=== PATIENT | female | born 1995 | race Caucasian/White ===

== ENCOUNTER 2017-02-03 17:34 | Emergency (ER) | payer OTHER ==
[2017-02-03 17:54] VITALS: BP 117/67
--- NOTE | 2017-02-03 18:44 | UC ---
Throat Pain/Nasal Noel HPI - HPI Summary HPI Summary: 21 yo female with sore throat since this AM nasal congestion no fever - History of Current Complaint Chief Complaint: UCRespiratory Stated Complaint: SORE THROAT Time Seen by Provider: 02/03/17 18:32 Hx Obtained From: Patient Hx Last Menstrual Period: Implanon BC Onset/Duration: Gradual Onset, Lasting Hours Severity: Moderate Pain Intensity: 4 Pain Scale Used: 0-10 Numeric Cough: Nonproductive - Allergies/Home Medications Allergies/Adverse Reactions: Allergies Allergy/AdvReac Type Severity Reaction Status Date / Time No Known Allergies Allergy Verified 02/03/17 17:47 PMH/Surg Hx/FS Hx/Imm Hx Previously Healthy: Yes - Surgical History Surgical History: Yes Surgery Procedure, Year, and Place: c-sect - Family History Known Family History: Positive: Cardiac Disease, Hypertension, Other - [place] - Social History Alcohol Use: Daily Substance Use Type: None Smoking Status (MU): Light Every Day Tobacco Smoker Type: Cigarettes Amount Used/How Often: 1/2 pack day Household Exposure Type: Cigarettes - Immunization History Most Recent Influenza Vaccination: NONE [id number] Most Recent Tetanus Shot: UTD Most Recent Pneumonia Vaccination: N/A Review of Systems Constitutional: Negative Skin: Negative Eyes: Negative ENT: Sore Throat Respiratory: Cough Cardiovascular: Negative Gastrointestinal: Negative Genitourinary: Negative Motor: Negative Neurovascular: Negative Musculoskeletal: Negative Neurological: Negative Psychological: Negative All Other Systems Reviewed And Are Negative: Yes Physical Exam Triage Information Reviewed: Yes Appearance: Well-Appearing, No Pain Distress, Well-Nourished Vital Signs: Initial Vital Signs Temp 99 F 02/03/17 17:48 Pulse 86 02/03/17 17:48 Resp 18 02/03/17 17:48 BP 117/67 02/03/17 17:48 Pulse Ox 99 02/03/17 17:48 Eyes: Positive: Conjunctiva Clear ENT: Positive: Pharyngeal erythema, TMs normal, Tonsillar swelling. Negative: Nasal congestion, Nasal drainage, Tonsillar exudate, Trismus, Muffled/hoarse voice Neck: Positive: Supple, Nontender, Enlarged Nodes @ - ant cervical Respiratory: Positive: Lungs clear, Normal breath sounds, No respiratory distress, No accessory muscle use Cardiovascular: Positive: RRR, No Murmur Musculoskeletal: Positive: ROM Intact, No Edema Neurological Exam: Normal Neurological: Positive: Alert Psychological Exam: Normal Skin Exam: Normal Throat Pain/Nasal Course/Dx - Differential Dx/Diagnosis Provider Diagnoses: pharyngo-tonsillitis Discharge - Discharge Plan Condition: Stable Disposition: HOME Prescriptions: Amoxicillin (*) [Amoxicillin 875 MG (*)] 875 mg PO BID #20 tab Patient Education Materials: Pharyngitis (ED) Referrals: No Primary Care Phys,NOPCP [Primary Care Provider] - Additional Instructions: saline nasal spray recheck in 3-4 days if not better
== END 2017-02-03 18:44 | disposition home or self-care (01) ==
LOC: UCCORT 17:34
DX: J02.9 Acute pharyngitis, unspecified (principal); R09.81 Nasal congestion; F17.210 Nicotine dependence, cigarettes, uncomplicated
CPT/HCPCS: 99212; G0463

== ENCOUNTER 2017-02-08 11:03 | Emergency (ER) | payer OTHER ==
[2017-02-08 11:28] VITALS: BP 110/51
--- NOTE | 2017-02-08 12:22 | UC ---
Throat Pain/Nasal Noel HPI - HPI Summary HPI Summary: Pateint was treated for tonisillitis on 02/03/17. she has been taking amoxicillin without relief or decrease in symtpoms. ears feel full and she is coughing up mucous. denies fever. - History of Current Complaint Chief Complaint: UCRespiratory Stated Complaint: RE-CK, EARS CLOGGED,CONGESTION Time Seen by Provider: 02/08/17 12:11 Hx Obtained From: Patient Hx Last Menstrual Period: 01/25/17 ?: No Onset/Duration: Gradual Onset, Lasting Days Severity: Moderate Cough: Sputum Appears Associated Signs & Symptoms: Positive: Dysphagia, Sinus Discomfort, Nasal Discharge - Allergies/Home Medications Allergies/Adverse Reactions: Allergies Allergy/AdvReac Type Severity Reaction Status Date / Time No Known Allergies Allergy Verified 02/08/17 11:28 PMH/Surg Hx/FS Hx/Imm Hx Previously Healthy: Yes - Surgical History Surgical History: Yes Surgery Procedure, Year, and Place: c-sect - Family History Known Family History: Positive: Cardiac Disease, Hypertension, Other - [place] - Social History Alcohol Use: Daily Substance Use Type: None Smoking Status (MU): Heavy Every Day Tobacco Smoker Type: Cigarettes Amount Used/How Often: 1/2 pack day Length of Time of Smoking/Using Tobacco: since age 15 Household Exposure Type: Cigarettes - Immunization History Most Recent Influenza Vaccination: NONE [id number] Most Recent Tetanus Shot: UTD Most Recent Pneumonia Vaccination: N/A Review of Systems Constitutional: Negative Skin: Negative Eyes: Eye Redness ENT: Sore Throat, Ear Ache, Nasal Discharge Respiratory: Cough Cardiovascular: Negative Gastrointestinal: Negative Genitourinary: Negative Motor: Negative Neurovascular: Negative Musculoskeletal: Negative Neurological: Negative Psychological: Negative All Other Systems Reviewed And Are Negative: Yes Physical Exam Triage Information Reviewed: Yes Appearance: Well-Nourished, Ill-Appearing, Pain Distress Vital Signs: Initial Vital Signs Temp 97.9 F 02/08/17 11:21 Pulse 61 02/08/17 11:21 Resp 14 02/08/17 11:21 BP 110/51 02/08/17 11:21 Pulse Ox 100 02/08/17 11:21 Vital Signs Reviewed: Yes Eye Exam: Normal Eyes: Positive: Conjunctiva Inflamed ENT: Positive: Pharyngeal erythema, TM bulging, TM red, Tonsillar swelling, Tonsillar exudate Dental Exam: Normal Neck exam: Normal Neck: Positive: Supple, Nontender, No Lymphadenopathy Respiratory Exam: Normal Respiratory: Positive: No respiratory distress, No accessory muscle use, Wheezing, Inspiration Cardiovascular Exam: Normal Cardiovascular: Positive: RRR, No Murmur, Pulses Normal Abdominal Exam: Normal Abdomen Description: Positive: Nontender, No Organomegaly, Soft Bowel Sounds: Positive: Present Musculoskeletal Exam: Normal Musculoskeletal: Positive: Strength Intact, ROM Intact, No Edema Neurological Exam: Normal Neurological: Positive: Alert, Muscle Tone Normal Psychological Exam: Normal Skin Exam: Normal Throat Pain/Nasal Course/Dx - Course Course Of Treatment: hx obtained, exam performed, meds reviewed, treated for rhinosinusitis. given prednisone and educated on daily allergy medication use. encouraged hydration - Differential Dx/Diagnosis Differential Diagnosis/HQI/PQRI: Influenza, Laryngitis, Otitis Media, Pharyngitis, Sinusitis, URI Provider Diagnoses: rhinosinusitis. pharyngitis Discharge - Discharge Plan Condition: Stable Disposition: HOME Prescriptions: predniSONE TAB* [Deltasone TAB*] 40 mg PO DAILY #14 tab Patient Education Materials: Rhinosinusitis (ED) Referrals: No Primary Care Phys,NOPCP [Primary Care Provider] - Additional Instructions: 1. take the medication as prescribed. 2. Increase your fluid intake 3. take a daily allergy medication such as Claritin d or Zyrtec. 4. Follow up as needed.
== END 2017-02-08 12:33 | disposition home or self-care (01) ==
LOC: UCCORT 11:03
DX: J32.9 Chronic sinusitis, unspecified (principal); J02.9 Acute pharyngitis, unspecified; F17.210 Nicotine dependence, cigarettes, uncomplicated
CPT/HCPCS: 99212; G0463

== ENCOUNTER 2017-10-25 08:10 | Emergency (ER) | payer OTHER ==
[2017-10-25 08:35] VITALS: BP 115/68
--- NOTE | 2017-10-25 08:52 | UC ---
FLU HPI - HPI Summary HPI Summary: Pt c/o sudden onset of nasal congestion, body aches, generalized malaise, cough X 1 day. Did not get flu vaccine this year. - History of Current Complaint Chief Complaint: UCGeneralIllness Stated Complaint: LOW BACK/ARM MUSCLES CONGESTION Time Seen by Provider: 10/25/17 08:24 Hx Obtained From: Patient Hx Last Menstrual Period: 10/23/17 ?: No Onset/Duration: Sudden Onset Severity Currently: Mild Severity Initially: Mild Pain Intensity: 5 Associated Signs & Symptoms: Positive: Myalgia, Cough, Nasal Congestion Related Hx: Possible Flu/Infectious Exposure, Smoking - Allergy/Home Medications Allergies/Adverse Reactions: Allergies Allergy/AdvReac Type Severity Reaction Status Date / Time No Known Allergies Allergy Verified 10/25/17 08:32 Home Medications: Home Medications medroxyPROGESTERone ACETATE* [DEPO-Provera] 150 mg IM Q3M 10/25/17 [History Confirmed 10/25/17] PMH/Surg Hx/FS Hx/Imm Hx Previously Healthy: Yes - Surgical History Surgical History: Yes Surgery Procedure, Year, and Place: c-sect - Family History Known Family History: Positive: Cardiac Disease, Hypertension, Other - [place] - Social History Occupation: Employed Full-time Lives: With Family Alcohol Use: Weekly Substance Use Type: None Smoking Status (MU): Heavy Every Day Tobacco Smoker Type: Cigarettes Amount Used/How Often: 1/2 pack day Length of Time of Smoking/Using Tobacco: since age 15 Have You Smoked in the Last Year: Yes Household Exposure Type: Cigarettes - Immunization History Most Recent Influenza Vaccination: NONE [id number] Most Recent Tetanus Shot: UTD Most Recent Pneumonia Vaccination: N/A Review of Systems Constitutional: Chills, Fatigue Skin: Negative Eyes: Negative ENT: Sore Throat, Sinus Congestion Respiratory: Cough Cardiovascular: Negative Gastrointestinal: Negative Genitourinary: Negative Motor: Negative Neurovascular: Negative Musculoskeletal: Myalgia Neurological: Negative Psychological: Negative Is Patient Immunocompromised?: No All Other Systems Reviewed And Are Negative: Yes Physical Exam Triage Information Reviewed: Yes Appearance: Well-Appearing Vital Signs: Initial Vital Signs Temp 99 F 10/25/17 08:30 Pulse 75 10/25/17 08:30 Resp 16 10/25/17 08:30 BP 115/68 10/25/17 08:30 Pulse Ox 100 10/25/17 08:30 Vital Signs Reviewed: Yes Eye Exam: Normal ENT Exam: Other ENT: Positive: Nasal congestion Respiratory Exam: Normal Cardiovascular Exam: Normal Musculoskeletal Exam: Normal Neurological Exam: Normal Psychological Exam: Normal Skin Exam: Normal Flu Course/Dx - Differential Dx/Diagnosis Differential Diagnosis/HQI/PQRI: Bronchitis, Influenza, RSV, Upper Respiratory Infection Provider Diagnoses: viral syndrome Discharge - Discharge Plan Condition: Stable Disposition: HOME Patient Education Materials: Viral Syndrome (ED) Referrals: No Primary Care Phys,NOPCP [Primary Care Provider] - [facility] [place] [facility] [Outside]
== END 2017-10-25 09:05 | disposition home or self-care (01) ==
LOC: UCCORT 08:10
DX: B34.9 Viral infection, unspecified (principal); F17.210 Nicotine dependence, cigarettes, uncomplicated
CPT/HCPCS: 87502; 99211; G0463

== ENCOUNTER 2018-02-07 09:19 | Emergency (ER) | payer OTHER ==
--- NOTE | 2018-02-07 09:57 | UC ---
Skin Complaint HPI - HPI Summary HPI Summary: pt presents with sunburn to upper, chest, back and upper extremities. - History of Current Complaint Chief Complaint: UCSkin Time Seen by Provider: 02/07/18 09:33 Stated Complaint: SUNBURN Hx Obtained From: Patient Hx Last Menstrual Period: 6 weeks ?: No Onset/Duration: Gradual Onset, Lasting Days, Still Present Skin Exposure Onset/Duration: Days Ago Timing: Constant Onset Severity: Moderate Current Severity: Moderate Pain Intensity: 7 Location: Discrete - upper chest, back and extremities. Character: Redness, Painful Aggravating Factor(s): Touch Alleviating Factor(s): OTC Creams/Salves, Cold Compresses Associated Signs & Symptoms: Positive: Tenderness Related History: Other: - sun exposure - Allergy/Home Medications Allergies/Adverse Reactions: Allergies Allergy/AdvReac Type Severity Reaction Status Date / Time probable allergies Allergy Congestion Uncoded 02/07/18 09:43 Home Medications: Home Medications Acetaminophen [Acetaminophen Extra Strength] 500 mg PO ONCE PRN 02/07/18 [ History Confirmed 02/07/18] Aloe Vera 1 gel EX BID 02/07/18 [History Confirmed 02/07/18] Etonogestrel [Nexplanon] 68 mg IMPLANT DAILY 02/07/18 [History Confirmed ] Review of Systems Constitutional: Negative Skin: Other - sun burn Eyes: Negative ENT: Negative Respiratory: Negative Cardiovascular: Negative Gastrointestinal: Negative Genitourinary: Negative Motor: Negative Neurovascular: Negative Musculoskeletal: Myalgia Neurological: Negative Psychological: Negative Is Patient Immunocompromised?: No All Other Systems Reviewed And Are Negative: Yes PMH/Surg Hx/FS Hx/Imm Hx Previously Healthy: Yes - Surgical History Surgical History: Yes Surgery Procedure, Year, and Place: c-sect - Family History Known Family History: Positive: Cardiac Disease, Hypertension, Other - [place] - Social History Occupation: Employed Full-time Lives: With Family Alcohol Use: Occasionally Alcohol Amount: 3 per week Substance Use Type: None Smoking Status (MU): Heavy Every Day Tobacco Smoker Type: Cigarettes Amount Used/How Often: 1/2 pack day Length of Time of Smoking/Using Tobacco: since age 15 Have You Smoked in the Last Year: Yes Household Exposure Type: Cigarettes - Immunization History Most Recent Influenza Vaccination: NONE [id number] Most Recent Tetanus Shot: UTD Most Recent Pneumonia Vaccination: N/A Physical Exam Triage Information Reviewed: Yes Appearance: Pain Distress Vital Signs: Initial Vital Signs Temp 98.5 F 02/07/18 09:34 Pulse 63 02/07/18 09:34 Resp 18 02/07/18 09:34 Pulse Ox 100 02/07/18 09:34 Vital Signs Reviewed: Yes Eye Exam: Normal ENT Exam: Normal Dental Exam: Normal Neck exam: Normal Respiratory: Positive: No respiratory distress Musculoskeletal Exam: Normal Neurological Exam: Normal Psychological Exam: Normal Skin Exam: Other - sun burn, no blisters or break in skin, to upper chest, back and extremities, face. Course/Dx - Course Course Of Treatment: I discussed with the pt the need to managemnet fluid intake as well as skin integrity as burn heals. Pt verbalized understanding and agreed to plan of care. - Differential Diagnoses - Skin Complaint Differential Diagnoses: Cellulitis, Other - sun burn - Diagnoses Provider Diagnoses: sunburn, 1st degree burn. (upper chest, back, face, and arms ) Discharge - Sign-Out/Discharge Documenting (check all that apply): Discharge/Admit/Transfer - Discharge Plan Condition: Stable Disposition: HOME Prescriptions: Cephalexin CAP* [Keflex 500 CAP*] 500 mg PO Q12H #6 cap Ibuprofen TAB* [Motrin TAB* 800 MG] 800 mg PO Q8H PRN #15 tab PRN Reason: Pain Patient Education Materials: Sunburn (ED), Cold Compress or Soak (ED) Forms: *Work Release Referrals: [facility] [place] [facility] [Outside] No Primary Care Phys,NOPCP [Primary Care Provider] - - Billing Disposition and Condition Condition: STABLE Disposition: Home
== END 2018-02-07 10:05 | disposition home or self-care (01) ==
LOC: UCCORT 09:19
DX: L55.0 Sunburn of first degree (principal); F17.210 Nicotine dependence, cigarettes, uncomplicated
CPT/HCPCS: 99212; G0463

== ENCOUNTER 2018-05-30 16:31 | Emergency (ER) | payer OTHER ==
[2018-05-30 17:34] VITALS: BP 106/70
--- NOTE | 2018-05-30 18:58 | UC ---
General HPI - HPI Summary HPI Summary: Pt presents to the for evaluation of her sinus congestion. she states that it has been ongoing for the past 3 days. she described head pressure and nasal congestion. she denies any sick contacts that she is aware of. she denies any vomiting, diarrhea, constipation, abdominal pain or any other complaints. - History of Current Complaint Chief Complaint: UCGeneralIllness Stated Complaint: CONGESTION, SORE THROAT Hx Obtained From: Patient Hx Last Menstrual Period: nexplanon Onset/Duration: Lasting Days Timing: Constant Onset Severity: Moderate Current Severity: Moderate Pain Intensity: 5 Associated Signs & Symptoms: Positive: Cough - mild, she is a smoker, Headache. Negative: Abdominal Pain, Back Pain, Confusion, Chest Pain, Dizziness, Diarrhea, Fever, Nausea, Palpitations, Syncope, SOB - Allergy/Home Medications Allergies/Adverse Reactions: Allergies Allergy/AdvReac Type Severity Reaction Status Date / Time probable allergies Allergy Congestion Uncoded 05/30/18 17:27 PMH/Surg Hx/FS Hx/Imm Hx Previously Healthy: Yes Endocrine History: Other - none Other Endocrine History: none Respiratory History: Other - none Other Respiratory History: none - Surgical History Surgical History: Yes Surgery Procedure, Year, and Place: c-sect - Family History Known Family History: Positive: Cardiac Disease, Hypertension, Other - [place] - Social History Alcohol Use: Weekly Alcohol Amount: 2 per week Substance Use Type: None Smoking Status (MU): Heavy Every Day Tobacco Smoker Type: Cigarettes Amount Used/How Often: 1/2 pack day Length of Time of Smoking/Using Tobacco: since age 15 Have You Smoked in the Last Year: Yes Household Exposure Type: Cigarettes - Immunization History Most Recent Influenza Vaccination: NONE [id number] Most Recent Tetanus Shot: UTD Most Recent Pneumonia Vaccination: N/A Review of Systems Constitutional: Negative Skin: Negative Eyes: Negative ENT: Sore Throat, Ear Ache, Sinus Congestion, Sinus Pain/Tenderness Respiratory: Cough - mild, Other Cardiovascular: Negative Gastrointestinal: Negative Genitourinary: Negative Motor: Negative Neurovascular: Negative Musculoskeletal: Negative Neurological: Negative All Other Systems Reviewed And Are Negative: No Physical Exam Triage Information Reviewed: Yes Appearance: Well-Appearing, No Pain Distress, Well-Nourished Vital Signs: Initial Vital Signs Temp 98.2 F 05/30/18 17:28 Pulse 78 05/30/18 17:28 Resp 16 05/30/18 17:28 BP 106/70 05/30/18 17:28 Pulse Ox 99 05/30/18 17:28 Vital Signs Reviewed: Yes Eye Exam: Normal Eyes: Positive: Conjunctiva Clear ENT: Positive: Pharyngeal erythema, TM dull, Tonsillar exudate, Sinus tenderness Neck exam: Normal Neck: Positive: Supple, Nontender Respiratory: Positive: Chest non-tender, Lungs clear, Normal breath sounds, No respiratory distress, No accessory muscle use Cardiovascular Exam: Normal Cardiovascular: Positive: RRR, No Murmur Abdomen Description: Positive: Nontender, Soft Bowel Sounds: Positive: Present Musculoskeletal Exam: Normal Musculoskeletal: Positive: Strength Intact, ROM Intact, No Edema Neurological Exam: Normal Neurological: Positive: Alert Psychological Exam: Normal Psychological: Positive: Normal Response To Family, Age Appropriate Behavior Skin Exam: Normal Skin: Negative: rashes Course/Dx - Course Course Of Treatment: pt has a uri. she does have some exudate to her right peritonsilar area. this may be indicative of an acute pharyngitis. will tx with antibiotics. pt given a work excuse and encouraged to f/u with pcp. - Differential Dx - Multi-Symptom Provider Diagnoses: upper respiratory infection Discharge - Sign-Out/Discharge Documenting (check all that apply): Patient Departure All imaging exams completed and their final reports reviewed: No Studies - Discharge Plan Condition: Stable Disposition: HOME Prescriptions: Azithromyxin MAYELIN (NF) [Z-Mayelin (Zithromax) 250 mg tabs #6] 2 tab PO .TODAY, THEN 1 DAILY #6 tab Patient Education Materials: Upper Respiratory Infection (ED) Forms: *Work Release Referrals: No Primary Care Phys,NOPCP [Primary Care Provider] - Additional Instructions: take the antibiotic as instructed. return if worse or any new symptoms. Take tylenol and motrin for pain. - Billing Disposition and Condition Condition: STABLE Disposition: Home
== END 2018-05-30 19:04 | disposition home or self-care (01) ==
LOC: UCCORT 16:31
DX: F17.210 Nicotine dependence, cigarettes, uncomplicated (principal); J06.9 Acute upper respiratory infection, unspecified
CPT/HCPCS: 99212; G0463

== ENCOUNTER 2018-09-01 09:40 | Emergency (ER) | payer OTHER ==
[2018-09-01 10:44] VITALS: BP 116/70
== END 2018-09-01 11:03 | disposition left against medical advice (07) ==
LOC: UCCORT 09:40
DX: J02.9 Acute pharyngitis, unspecified (principal); Z53.21 Procedure and treatment not carried out due to patient leaving prior to being seen by health care provider

== ENCOUNTER 2018-09-14 17:58 | Emergency (ER) | payer OTHER ==
[2018-09-14 18:25] VITALS: BP 120/71
--- NOTE | 2018-09-14 18:35 | UC ---
Throat Pain/Nasal Noel HPI - HPI Summary HPI Summary: 23-year-old woman here with a chief complaint of sore throat and body aches. Sore throat started yesterday been having some chills today started with generalized body aches. She feels ill. Pain is worse with swallowing as bad when she doesn't swallow. SHe did state take some Tylenol earlier today. She with her tonsils which are swollen and she sees white spots on thEM. Patient took a dose of amoxicillin jpta from a prior infection. - History of Current Complaint Chief Complaint: UCGeneralIllness Stated Complaint: SORE THROAT,BODY ACHES Time Seen by Provider: 09/14/18 18:30 Hx Last Menstrual Period: 09/02/17 Pain Intensity: 6 - Allergies/Home Medications Allergies/Adverse Reactions: Allergies Allergy/AdvReac Type Severity Reaction Status Date / Time No Known Allergies Allergy Verified 09/14/18 18:21 Home Medications: Home Medications Amoxicillin 500 mg PO ONCE 09/14/18 [History Confirmed 09/14/18] PMH/Surg Hx/FS Hx/Imm Hx Previously Healthy: Yes - Surgical History Surgical History: Yes Surgery Procedure, Year, and Place: c-sect - Family History Known Family History: Positive: Cardiac Disease, Hypertension, Other - [place] - Social History Alcohol Use: Weekly Alcohol Amount: 2 per week Substance Use Type: None Smoking Status (MU): Heavy Every Day Tobacco Smoker Type: Cigarettes Amount Used/How Often: 1/2 pack day Length of Time of Smoking/Using Tobacco: since age 15 Have You Smoked in the Last Year: Yes Household Exposure Type: Cigarettes - Immunization History Most Recent Influenza Vaccination: NONE [id number] Most Recent Tetanus Shot: UTD Most Recent Pneumonia Vaccination: N/A Review of Systems All Other Systems Reviewed And Are Negative: Yes Constitutional: Positive: Chills Skin: Positive: Negative Eyes: Positive: Negative ENT: Positive: Sore Throat Respiratory: Positive: Negative Cardiovascular: Positive: Negative Gastrointestinal: Positive: Negative Motor: Positive: Negative Neurovascular: Positive: Negative Musculoskeletal: Positive: Myalgia Neurological: Positive: Negative Psychological: Positive: Negative Is Patient Immunocompromised?: No Physical Exam Triage Information Reviewed: Yes Appearance: No Pain Distress, Well-Nourished, Ill-Appearing - MILD Vital Signs: Initial Vital Signs Temp 98.3 F 09/14/18 18:20 Pulse 77 09/14/18 18:20 Resp 16 09/14/18 18:20 BP 120/71 09/14/18 18:20 Pulse Ox 100 09/14/18 18:20 Vital Signs Reviewed: Yes Eye Exam: Normal Eyes: Positive: Conjunctiva Clear ENT: Positive: Pharyngeal erythema, Nasal congestion, Nasal drainage, TMs normal , Tonsillar swelling - 2+ B/L, NO PERITONSILLAR ABSCESS, Tonsillar exudate. Negative: Trismus, Muffled voice, Hoarse voice Neck exam: Normal Neck: Positive: Supple Respiratory: Positive: Lungs clear, Normal breath sounds, No respiratory distress Cardiovascular: Positive: RRR Musculoskeletal Exam: Normal Musculoskeletal: Positive: Strength Intact, ROM Intact Neurological Exam: Normal Neurological: Positive: Alert, Muscle Tone Normal Psychological Exam: Normal Psychological: Positive: Age Appropriate Behavior Skin Exam: Normal Throat Pain/Nasal Course/Dx - Course Course Of Treatment: Influenza swab was negative. We discussed getting a culture of the throat as the rapid strep test may be invalid if the patient just took an antibiotic. We also discussed viral versus bacterial infections and the role of antibiotics. At this time the patient prefers to be on an antibiotic. Patient's to get reevaluated if not improved or worsens. - Differential Dx/Diagnosis Provider Diagnosis: Tonsillitis with exudate Discharge - Sign-Out/Discharge Documenting (check all that apply): Patient Departure All imaging exams completed and their final reports reviewed: No Studies - Discharge Plan Condition: Stable Disposition: HOME Prescriptions: Amoxicillin PO (*) [Amoxicillin 500 MG CAP*] 500 mg PO TID #30 cap Patient Education Materials: Tonsillitis (ED) Forms: *Work Release Referrals: [facility] [place] [facility] [Outside] Additional Instructions: FOLLOW UP WITH YOUR DOCTOR IF NOT COMPLETELY IMPROVED. GET RECHECKED FOR ANY WORSENING OF YOUR CONDITION OR QUESTIONS OR CONCERNS. - Billing Disposition and Condition Condition: STABLE Disposition: Home
[2018-09-14] MEDS ORDERED: Ibuprofen TAB* 600 MG PO ONE (18:58)
== END 2018-09-14 19:06 | disposition home or self-care (01) ==
LOC: UCCORT 17:58
DX: J03.90 Acute tonsillitis, unspecified (principal); F17.210 Nicotine dependence, cigarettes, uncomplicated
CPT/HCPCS: 99212; A9270-GY; G0463

== ENCOUNTER 2018-10-28 12:25 | Emergency (ER) | payer OTHER ==
[2018-10-28 12:55] VITALS: BP 113/68
--- NOTE | 2018-10-28 14:52 | UC ---
Dizzy HPI HPI Summary: 23 yo female rolled over in bed- sudden onset severe vertigo and nausea ...lasted about a minute later helping daughter get ready for school and it happened again Third episode a beauty pallor. Head was back getting hair washed. Stood and was on the verge of getting severe veritgo but it passed no RODRIGUEZ no URI symptoms no ringing or roaring in her ears no CP/palpitations or SOB no neck pain - History Of Current Complaint Chief Complaint: UCGeneralIllness Stated Complaint: NAUSEA, DIZZINESS Time Seen by Provider: 10/28/18 14:34 Hx Obtained From: Patient Hx Last Menstrual Period: 10/12/18 Onset/Duration: Sudden Onset, Lasting Minutes Timing: Seconds Severity Initially: Severe Severity Currently: None Pain Intensity: 0 Pain Scale Used: 0-10 Numeric Character: Room Spinning, Dizzy Aggravating Factor(s): Position Change, Change In Head Position Alleviating Factor(s): Other - spontaneously resolves Associated Signs And Symptoms: Positive: Nausea, Diaphoresis. Negative: Vomiting, Tinnitus, Chest Pain, SOB, Palpitations, Unsteady Gait, Visual Changes , Decreased Oral Intake, Change In Medication, Change In Diet, OTC Medications - Allergies/Home Medications Allergies/Adverse Reactions: Allergies Allergy/AdvReac Type Severity Reaction Status Date / Time No Known Allergies Allergy Verified 10/28/18 12:50 PMH/Surg Hx/FS Hx/Imm Hx Previously Healthy: Yes - Surgical History Surgical History: Yes Surgery Procedure, Year, and Place: c-sect - Family History Known Family History: Positive: Cardiac Disease, Hypertension, Other - [place] - Social History Alcohol Use: Weekly Alcohol Amount: 2 per week Substance Use Type: None Smoking Status (MU): Heavy Every Day Tobacco Smoker Type: Cigarettes Amount Used/How Often: 1/2 pack day Length of Time of Smoking/Using Tobacco: since age 15 Have You Smoked in the Last Year: Yes Household Exposure Type: Cigarettes - Immunization History Most Recent Influenza Vaccination: NONE [id number] Most Recent Tetanus Shot: UTD Most Recent Pneumonia Vaccination: N/A Review of Systems All Other Systems Reviewed And Are Negative: Yes Constitutional: Positive: Negative Skin: Positive: Negative Eyes: Positive: Negative ENT: Positive: Negative Respiratory: Positive: Negative Cardiovascular: Positive: Negative Gastrointestinal: Positive: Nausea Genitourinary: Positive: Negative Motor: Positive: Negative Neurovascular: Positive: Negative Musculoskeletal: Positive: Negative Neurological: Positive: Other - vertigo Psychological: Positive: Negative Physical Exam Triage Information Reviewed: Yes Appearance: Well-Appearing, No Pain Distress, Well-Nourished Vital Signs: Initial Vital Signs Temp 98.1 F 10/28/18 12:50 Pulse 66 10/28/18 12:50 Resp 15 10/28/18 12:50 BP 113/68 10/28/18 12:50 Pulse Ox 100 10/28/18 12:50 Vital Signs Reviewed: Yes Eyes: Positive: Conjunctiva Clear, Other: - EOMI/PERRL/no nystagmus/fundi benign ENT: Positive: Hearing grossly normal, Pharynx normal, TMs normal, Uvula midline. Negative: Nasal congestion, Nasal drainage, Tonsillar swelling, Tonsillar exudate, Trismus, Muffled voice, Hoarse voice, Dental tenderness Dental Exam: Normal Neck: Positive: Supple, Nontender, No Lymphadenopathy, Other: - no bruits Respiratory: Positive: Lungs clear, Normal breath sounds, No respiratory distress, No accessory muscle use Cardiovascular: Positive: RRR, No Murmur Musculoskeletal: Positive: Strength Intact, ROM Intact, No Edema Neurological Exam: Normal Neurological: Positive: Other: - cn2-12 intact, DTRs equal bilaterally, strentght 5/5, no ataxia,(-)Rhomberg Psychological Exam: Normal Skin Exam: Normal Dizzy Course/Dx - Differential Dx/Diagnosis Provider Diagnosis: Benign paroxysmal positional vertigo Discharge - Sign-Out/Discharge Documenting (check all that apply): Patient Departure All imaging exams completed and their final reports reviewed: No Studies - Discharge Plan Condition: Stable Disposition: HOME Prescriptions: Meclizine HCl [Dramamine Less Drowsy] 25 mg PO TID PRN #15 tablet PRN Reason: Vertigo Patient Education Materials: Benign Paroxysmal Positional Vertigo (ED) Referrals: No Primary Care Phys,NOPCP [Primary Care Provider] - Additional Instructions: I suggest you not drive until better recheck for new or worsening symptoms recheck next week if not better - Billing Disposition and Condition Condition: STABLE Disposition: Home
== END 2018-10-28 15:01 | disposition home or self-care (01) ==
LOC: UCCORT 12:25
DX: H81.10 Benign paroxysmal vertigo, unspecified ear (principal); F17.210 Nicotine dependence, cigarettes, uncomplicated
CPT/HCPCS: 99212; G0463

== ENCOUNTER 2019-06-06 11:55 | Emergency (ER) | payer OTHER ==
[2019-06-06 12:14] VITALS: BP 104/67
--- NOTE | 2019-06-06 12:23 | UC ---
Throat Pain/Nasal Noel HPI - HPI Summary HPI Summary: sore throat x 2 days nasal congestion , pnd , cough cough is dry , + sinus pain and pressure body aches, no fever , + chills - History of Current Complaint Chief Complaint: UCGeneralIllness Stated Complaint: CONGESTION,ST Time Seen by Provider: 06/06/19 12:12 Hx Obtained From: Patient Hx Last Menstrual Period: 10/12/18 Onset/Duration: Gradual Onset, Lasting Days - 2, Still Present Severity: Moderate Pain Intensity: 3 Cough: Nonproductive Associated Signs & Symptoms: Positive: Sinus Discomfort, Nasal Discharge. Negative: Dysphagia, FB Sensation, Drooling, Wheezing, Hoarseness, Fever, Vomiting, Rash - Allergies/Home Medications Allergies/Adverse Reactions: Allergies Allergy/AdvReac Type Severity Reaction Status Date / Time No Known Allergies Allergy Verified 06/06/19 12:15 PMH/Surg Hx/FS Hx/Imm Hx Previously Healthy: Yes - Surgical History Surgical History: Yes Surgery Procedure, Year, and Place: c-sect - Family History Known Family History: Positive: Cardiac Disease, Hypertension, Other - [place] - Social History Alcohol Use: Weekly Alcohol Amount: 2 per week Substance Use Type: None Smoking Status (MU): Heavy Every Day Tobacco Smoker Type: Cigarettes Amount Used/How Often: 1/2 pack day Length of Time of Smoking/Using Tobacco: since age 15 Have You Smoked in the Last Year: Yes Household Exposure Type: Cigarettes - Immunization History Most Recent Influenza Vaccination: NONE [id number] Most Recent Tetanus Shot: UTD Most Recent Pneumonia Vaccination: N/A Review of Systems All Other Systems Reviewed And Are Negative: Yes Constitutional: Positive: Chills, Fatigue Skin: Positive: Negative Eyes: Positive: Negative ENT: Positive: Sore Throat, Nasal Discharge, Sinus Congestion, Sinus Pain/ Tenderness Respiratory: Positive: Cough Cardiovascular: Positive: Negative Is Patient Immunocompromised?: No Physical Exam Triage Information Reviewed: Yes Appearance: Well-Appearing, No Pain Distress, Well-Nourished Vital Signs: Initial Vital Signs Temp 99.1 F 06/06/19 12:11 Pulse 78 06/06/19 12:11 Resp 18 06/06/19 12:11 BP 104/67 06/06/19 12:11 Pulse Ox 100 06/06/19 12:11 Vital Signs Reviewed: Yes Eye Exam: Normal Eyes: Positive: Conjunctiva Clear ENT: Positive: Normal ENT inspection, Hearing grossly normal, Pharyngeal erythema, TMs normal. Negative: TM bulging, TM dull, TM red, Tonsillar swelling , Tonsillar exudate Neck: Positive: Supple, Nontender, No Lymphadenopathy Respiratory: Positive: Chest non-tender, Lungs clear, Normal breath sounds Cardiovascular: Positive: RRR, No Murmur, Pulses Normal Throat Pain/Nasal Course/Dx - Differential Dx/Diagnosis Provider Diagnosis: URI (upper respiratory infection) Discharge ED - Sign-Out/Discharge Documenting (check all that apply): Patient Departure All imaging exams completed and their final reports reviewed: No Studies - Discharge Plan Condition: Stable Disposition: HOME Patient Education Materials: Upper Respiratory Infection (DC) Referrals: No Primary Care Phys,NOPCP [Primary Care Provider] - If Needed Additional Instructions: viral illness no need for antibiotics - Billing Disposition and Condition Condition: STABLE Disposition: Home
== END 2019-06-06 12:34 | disposition home or self-care (01) ==
LOC: UCCORT 11:55
DX: J06.9 Acute upper respiratory infection, unspecified (principal); F17.210 Nicotine dependence, cigarettes, uncomplicated
CPT/HCPCS: 87651; 99211; G0463

== ENCOUNTER 2019-06-07 07:36 | Emergency (ER) | payer OTHER ==
[2019-06-07] MEDS ORDERED: Ibuprofen TAB* 600 MG PO ONE (08:01)
--- NOTE | 2019-06-07 08:07 | UC ---
Throat Pain/Nasal Noel HPI - HPI Summary HPI Summary: 24-year-old woman comes in with a chief complaint of upper respiratory tract infection symptoms and body aches. Started with runny nose and sore throat about 4-5 days ago. Her rhinorrhea is green. Throat hurts when she swallows. She was seen here in clinic yesterday and her rapid strep was negative at that time. Overnight patient developed generalized body aches and feels worse than yesterday. Has tried some NyQuil. Has not tried ibuprofen. No cough or chest congestion no shortness of breath. - History of Current Complaint Chief Complaint: UCRespiratory Stated Complaint: BODYACHES Time Seen by Provider: 06/07/19 07:54 Hx Last Menstrual Period: 06/02 Pain Intensity: 5 - Allergies/Home Medications Allergies/Adverse Reactions: Allergies Allergy/AdvReac Type Severity Reaction Status Date / Time No Known Allergies Allergy Verified 06/07/19 07:47 Home Medications: Home Medications Dextromethorphn/Acetaminoph/Cp [Vicks Nyquil Cold & Flu N] 1 liq PO ONCE PRN 05/18 [History Confirmed 06/07/19] PMH/Surg Hx/FS Hx/Imm Hx Previously Healthy: Yes - Surgical History Surgical History: Yes Surgery Procedure, Year, and Place: c-sect x 1 - Family History Known Family History: Positive: Cardiac Disease, Hypertension, Other - [place] - Social History Alcohol Use: Weekly Alcohol Amount: 2 per week Substance Use Type: None Smoking Status (MU): Heavy Every Day Tobacco Smoker Type: Cigarettes Amount Used/How Often: 1/2 pack day Length of Time of Smoking/Using Tobacco: since age 15 Have You Smoked in the Last Year: Yes Household Exposure Type: Cigarettes - Immunization History Most Recent Influenza Vaccination: NONE [id number] Most Recent Tetanus Shot: UTD Most Recent Pneumonia Vaccination: N/A Review of Systems All Other Systems Reviewed And Are Negative: Yes Constitutional: Positive: Other - see hpi Skin: Positive: Negative Eyes: Positive: Negative ENT: Positive: Sore Throat, Nasal Discharge, Sinus Congestion Respiratory: Positive: Negative Cardiovascular: Positive: Negative Gastrointestinal: Positive: Negative Motor: Positive: Negative Neurovascular: Positive: Negative Musculoskeletal: Positive: Myalgia Neurological: Positive: Negative Psychological: Positive: Negative Is Patient Immunocompromised?: No Physical Exam Triage Information Reviewed: Yes Appearance: No Pain Distress, Well-Nourished, Ill-Appearing - mild Vital Signs: Initial Vital Signs Temp 97.8 F 06/07/19 07:48 Pulse 72 06/07/19 07:48 Resp 18 06/07/19 07:48 BP 108/61 06/07/19 07:48 Pulse Ox 98 06/07/19 07:48 Vital Signs Reviewed: Yes Eye Exam: Normal Eyes: Positive: Conjunctiva Clear ENT: Positive: Pharyngeal erythema, Nasal congestion, Nasal drainage, TMs normal , Tonsillar swelling - 1+ b/l with exudate on right, Uvula midline. Negative: Muffled voice, Hoarse voice Neck: Positive: Supple Respiratory: Positive: Lungs clear, Normal breath sounds, No respiratory distress Cardiovascular: Positive: RRR Musculoskeletal: Positive: Strength Intact, ROM Intact Neurological: Positive: Alert, Muscle Tone Normal Psychological: Positive: Age Appropriate Behavior Skin Exam: Normal Throat Pain/Nasal Course/Dx - Course Course Of Treatment: DISCUSSED VIRAL VERSES BACTERIAL INFECTIONS AND THE ROLE OF ANTIBIOTICS. THE PATIENT PREFERS TO BE ON ANTIBIOTICS AT THIS TIME - Differential Dx/Diagnosis Provider Diagnosis: Upper respiratory infection, Tonsillitis Discharge ED - Sign-Out/Discharge Documenting (check all that apply): Patient Departure All imaging exams completed and their final reports reviewed: No Studies - Discharge Plan Condition: Stable Disposition: HOME Prescriptions: Amoxicillin PO (*) [Amoxicillin 875 MG (*)] 875 mg PO BID #20 tab Patient Education Materials: Upper Respiratory Infection (ED) Forms: *Work Release Referrals: [facility] [place] [facility] REFERRAL [Outside] Additional Instructions: FOLLOW UP WITH YOUR DOCTOR IF NOT COMPLETELY IMPROVED. GET REEVALUATED SOONER IF NOT IMPROVING OR YOUR CONDITION WORSENS OR ANY QUESTIONS OR CONCERNS - Billing Disposition and Condition Condition: STABLE Disposition: Home
[2019-06-07 08:12] VITALS: BP 108/61
[2019-06-07 08:21] LABS: Influenza A Molecular NEGATIVE (Negative); Influenza B Molecular NEGATIVE (Negative)
== END 2019-06-07 08:37 | disposition home or self-care (01) ==
LOC: UCCORT 07:36
DX: J06.9 Acute upper respiratory infection, unspecified (principal); J03.90 Acute tonsillitis, unspecified; F17.210 Nicotine dependence, cigarettes, uncomplicated
CPT/HCPCS: 99212; A9270-GY; G0463

== ENCOUNTER 2019-09-15 16:14 | Emergency (ER) | payer OTHER ==
[2019-09-15 16:46] VITALS: BP 91/65
--- NOTE | 2019-09-15 17:05 | UC ---
Cardiac HPI - HPI Summary HPI Summary: Pt presents with sudden onset of chest pain that occurs with a depp inhalation breath. Pt denies injury difficulty breathing, sob or hx of PE. Pt recently quit smoking and does have nexplanon implanted. Pt denies reproducible pain. Pt does use upper extremities at work doing a great deal of lifting moving and upper arm and chest use. - History of Current Complaint Chief Complaint: UCChestPain Stated Complaint: pain w/inhalation above right breast Time Seen by Provider: 09/15/19 16:45 Hx Obtained From: Patient Hx Last Menstrual Period: 09/02/19 Onset/Duration: Sudden Onset, Still Present Timing: Intermittent Episodes Lasting: - with deep breath, inhalation Initial Severity: Moderate Current Severity: Moderate Pain Intensity: 7 Chest Pain Location: Discrete at: - right mid clavicular, Right Anterior Character: Sharp/Stabbing - with deep inhalation Aggravating Factor(s): Deep Breaths Alleviating Factor(s): Rest Associated Signs & Symptoms: Positive: Chest Pain - Risk Factors Pulmonary Embolism Risk Factors: Negative, Smoking - recently quit Cardiac Risk Factors: Smoking - recently quit Atrial Fibrillation: Negative TAD Risk Factors: Smoking - recently quit AMI/ACS Risk Factors: Smoking - recently quit - Allergy/Home Medications Allergies/Adverse Reactions: Allergies Allergy/AdvReac Type Severity Reaction Status Date / Time No Known Allergies Allergy Verified 09/15/19 16:41 Home Medications: Home Medications buPROPion HCl [Bupropion HCl Sr] 150 mg PO DAILY 09/15/19 [History Confirmed ] PMH/Surg Hx/FS Hx/Imm Hx Previously Healthy: Yes - Surgical History Surgical History: Yes Surgery Procedure, Year, and Place: c-sect x 1 - Family History Known Family History: Positive: Cardiac Disease, Hypertension, Other - [place] - Social History Occupation: Employed Full-time Lives: With Family Alcohol Use: None Alcohol Amount: 2 per week Substance Use Type: None Smoking Status (MU): Former Smoker Type: Cigarettes Amount Used/How Often: 1/2 pack day Length of Time of Smoking/Using Tobacco: since age 15 Have You Smoked in the Last Year: Yes When Did the Patient Quit Smoking/Using Tobacco: 08/30/19 Household Exposure Type: Cigarettes - Immunization History Most Recent Influenza Vaccination: NONE [id number] Most Recent Tetanus Shot: UTD Most Recent Pneumonia Vaccination: N/A Vaccination Up to Date: Yes Review of Systems All Other Systems Reviewed And Are Negative: Yes Constitutional: Positive: Negative Skin: Positive: Negative Eyes: Positive: Negative ENT: Positive: Negative Respiratory: Positive: Negative Cardiovascular: Positive: Chest Pain Gastrointestinal: Positive: Negative Genitourinary: Positive: Negative Motor: Positive: Negative Neurovascular: Positive: Negative Musculoskeletal: Positive: Negative Neurological: Positive: Negative Psychological: Positive: Negative Is Patient Immunocompromised?: No Physical Exam Triage Information Reviewed: Yes Appearance: Well-Appearing, No Pain Distress Vital Signs: Initial Vital Signs Temp 97.7 F 09/15/19 16:41 Pulse 67 09/15/19 16:41 Resp 16 09/15/19 16:41 BP 91/65 09/15/19 16:41 Pulse Ox 100 09/15/19 16:41 Vital Signs Reviewed: Yes Eye Exam: Normal ENT Exam: Normal Dental Exam: Normal Neck exam: Normal Respiratory Exam: Normal Respiratory: Positive: Chest non-tender, Lungs clear, Normal breath sounds, No respiratory distress Cardiovascular Exam: Normal Musculoskeletal Exam: Normal Neurological Exam: Normal Psychological Exam: Normal Skin Exam: Normal Diagnostics - Radiology No standard instances Radiology Interpretation Completed By: Radiologist - negative - Assessment/Plan Course Of Treatment: I discussed the results of the xray with pt. I discussed with the pt the need to seek immediate medical attention if her symptoms worsened. Pt verbalized understanding and agreed to plan of care. - Differential Diagnoses - Chest Pain Differential Diagnosis/HQI/PQRI: Chest Wall, Lower Respiratory Infection, Pulmonary Embolism - Differential Diagnoses - Palpitations Differential Diagnosis/HQI/PQRI: Myocarditis, Panic Disorder, Pericarditis, Pulmonary Embolism - Clinical Impression Provider Diagnosis: Acute chest wall pain, Chest pain made worse by breathing Discharge ED - Sign-Out/Discharge Documenting (check all that apply): Patient Departure All imaging exams completed and their final reports reviewed: Yes - Discharge Plan Condition: Stable Disposition: HOME Patient Education Materials: Chest Pain (ED), Chest Wall Pain (ED) Referrals: No Primary Care Phys,NOPCP [Primary Care Provider] - [facility] [place] [facility] REFERR[facility] [Outside] - Billing Disposition and Condition Condition: STABLE Disposition: Home
== END 2019-09-15 17:32 | disposition home or self-care (01) ==
LOC: UCCORT 16:14
DX: R07.89 Other chest pain (principal); R07.1 Chest pain on breathing; Z87.891 Personal history of nicotine dependence
CPT/HCPCS: 71046; 99211; G0463